=== PATIENT | female | born 1990 ===

== ENCOUNTER 2018-10-28 20:36 | Emergency (ER) | payer OTHER ==
[2018-10-28 20:44] VITALS: BMI 27.4
[2018-10-28] MEDS ORDERED: DiphenhydrAMINE 50 mg/ml Inj IVP ONE (20:58)
--- NOTE | 2018-10-28 21:02 | ED PDOC ---
Arrival/HPI - General Chief Complaint: Abnormal Skin Integrity Time Seen by Provider: 10/28/18 20:48 Historian: Patient - History of Present Illness Narrative History of Present Illness (Text): 10/28/18 21:11 28 year old female, whose past medical history includes eczema, presents to the emergency department complaining of eczema flare up for the past couple of days. She is experiencing itching to the skin. 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 Patient denies any fevers, chills, headache, dizziness, chest pain, shortness of breath, dyspnea on exertion, cough, abdominal pain, nausea, vomiting, diarrhea, back pain, neck pain, or any other complaint. Time/Duration: < week Symptom Onset: Gradual Symptom Course: Unchanged Activities at Onset: Light Context: Home Past Medical History - Provider Review Nursing Documentation Reviewed: Yes - Cardiac Hx Cardiac Disorders: No - Pulmonary Hx Respiratory Disorders: Yes Hx Asthma: Yes - Neurological Hx Neurological Disorder: No - HEENT Hx HEENT Disorder: No - Renal Hx Renal Disorder: No - Endocrine/Metabolic Hx Endocrine Disorders: No - Hematological/Oncological Hx Blood Disorders: No - Integumentary Hx Dermatological Disorder: Yes Hx Eczema: Yes - Musculoskeletal/Rheumatological Hx Musculoskeletal Disorders: No - Gastrointestinal Hx Gastrointestinal Disorders: No - Genitourinary/Gynecological Hx Genitourinary Disorders: No - Psychiatric Hx Psychophysiologic Disorder: No Hx Substance Use: No - Anesthesia Hx Anesthesia: No Family/Social History - Physician Review Nursing Documentation Reviewed: Yes Family/Social History: No Known Family HX Smoking Status: Never Smoked Hx Alcohol Use: No Hx Substance Use: No Allergies/Home Meds Allergies/Adverse Reactions: Allergies shellfish derived Allergy (Verified 10/28/18 20:42) ANAPHYLAXIS Home Medications: Home Meds Medication Instructions Recorded Confirmed Albuterol 0.083% [Albuterol 3 ml IH Q4 PRN 10/28/18 10/28/18 Sulfate 3 Ml] Review of Systems - Physician Review All systems were reviewed & negative as marked: Yes - Review of Systems Constitutional: absent: Fevers Respiratory: absent: SOB, Cough Cardiovascular: absent: Chest Pain Gastrointestinal: absent: Abdominal Pain, Diarrhea, Nausea, Vomiting Musculoskeletal: absent: Back Pain, Neck Pain Skin: Other (eczema flare up, itching to the skin) Neurological: absent: Headache, Dizziness Physical Exam Vital Signs Reviewed: Yes Blood Pressure: Normal Pulse: Tachycardic Respiratory Rate: Normal Appearance: Positive for: Well-Appearing, Non-Toxic, Comfortable Pain Distress: None Mental Status: Positive for: Alert and Oriented X 3 - Systems Exam Head: Present: Atraumatic, Normocephalic Pupils: Present: PERRL Neck: Present: Normal Range of Motion Respiratory/Chest: Present: Clear to Auscultation, Good Air Exchange. No: Respiratory Distress, Accessory Muscle Use Cardiovascular: Present: Regular Rate and Rhythm, Normal S1, S2. No: Murmurs Neurological: Present: GCS=15, CN II-XII Intact, Speech Normal Skin: Present: Warm, Dry, Other (scattered eczema with areas to the face, arms, chest, and elbows ) Psychiatric: Present: Alert, Oriented x 3, Normal Insight, Normal Concentration Medical Decision Making ED Course and Treatment: 10/28/18 21:16 Impression: 28 year old female who presents to the emergency department complaining of eczema flare up. Plan: --Benadryl -- Solu-medrol -- Reassess and disposition Progress Notes: - Medication Orders Current Medication Orders: Discontinued Medications Diphenhydramine HCl (Benadryl) 25 mg IVP ONCE ONE Stop: 10/28/18 20:59 Diphenhydramine HCl (Benadryl) 25 mg PO ONCE STA Stop: 10/28/18 20:59 Methylprednisolone (Solu-Medrol) 125 mg IVP ONCE ONE Stop: 10/28/18 20:59 - Scribe Statement The provider has reviewed the documentation as recorded by the Dominic Cota Provider Scribe Attestation: All medical record entries made by the Radhaibmartina were at my direction and personally dictated by me. I have reviewed the chart and agree that the record accurately reflects my personal performance of the history, physical exam, medical decision making, and the department course for this patient. I have also personally directed, reviewed, and agree with the discharge instructions and disposition. Disposition/Present on Arrival - Present on Arrival Any Indicators Present on Arrival: No History of DVT/PE: No History of Uncontrolled Diabetes: No Urinary Catheter: No History of Decub. Ulcer: No History Surgical Site Infection Following: None - Disposition Have Diagnosis and Disposition been Completed?: Yes Diagnosis: Eczema Disposition: HOME/ ROUTINE Disposition Time: 21:05 Patient Plan: Discharge Condition: GOOD Discharge Instructions (ExitCare): Eczema (Atopic Dermatitis) (DC) Additional Instructions: Take meds as prescribed/follow up with your doctor as scheduled Prescriptions: DiphenhydrAMINE [Benadryl] 50 mg PO Q6 PRN #24 cap PRN Reason: Itching / Pruritus predniSONE [Prednisone] 40 mg PO DAILY #10 tab Referrals: PCP,NO [Primary Care Provider] - Follow up with primary Forms: [employer] (Czech), WORK NOTE
[2018-10-28 21:43] VITALS: BP 118/90; PULSE 92; RESP 18; O2SAT 99
== END 2018-10-28 21:30 | disposition home or self-care (01) ==
LOC: ED 20:36
DX: L30.9 Dermatitis, unspecified (principal)
CPT/HCPCS: 81025; 96374; 96375; 99283; J1200; J2930